=== PATIENT | female | born 1960 | race African-American/Black ===

== ENCOUNTER 2017-09-29 13:53 | Emergency (ER) | payer OTHER ==
[~2017-09-29] VITALS: Ht 152.4 cm; Wt 81.8 kg
[~2017-09-29 13:53] MED LIST: CARV6 PO; CLON.2 PO; FAMO20 PO; FOLI0.8T22 PO; HYDR-3421 PO; LOSA25TA21 PO; NIFE10 PO; SEVEC800 PO
[2017-09-29] MEDS ORDERED: LIDO5CRE TP (14:29)
[2017-09-29] MEDS ORDERED: CINA30 PO (14:29)
[2017-09-29] MEDS ORDERED: HC530C TP (14:29)
[2017-09-29 16:10] VITALS: BP 152/69
[2017-09-29] MEDS ORDERED: BACITRACIN 0.9 GM PACKET OINTMENT TP ONE (17:15)
[2017-09-29] MEDS ORDERED: SODIUM CHLORIDE 0.9% 250 ML IRRIG SOLUTION BOTTLE IRRIG ONE (17:15)
== END 2017-09-29 17:45 | disposition home or self-care (01) ==
LOC: EMS 13:54
DX: S80.212A Abrasion, left knee, initial encounter (principal); I12.0 Hypertensive chronic kidney disease with stage 5 chronic kidney disease or end stage renal disease; E11.22 Type 2 diabetes mellitus with diabetic chronic kidney disease; N18.6 End stage renal disease; Z99.2 Dependence on renal dialysis; Z88.6 Allergy status to analgesic agent; W01.0XXA Fall on same level from slipping, tripping and stumbling without subsequent striking against object, initial encounter; Y93.89 Activity, other specified; Y92.89 Other specified places as the place of occurrence of the external cause; Y99.8 Other external cause status
CPT/HCPCS: 99283; 99284

== ENCOUNTER 2022-07-28 10:27 | Emergency (ER) | payer OTHER ==
[~2022-07-28] VITALS: Ht 167.6 cm; Wt 68.2 kg
[~2022-07-28 10:27] MED LIST changes: +CINA30 PO; -CLON.2 PO; +HYDR30CR44 TP; +LIDO5CRE TP; +LOSA-381 PO; -LOSA25TA21 PO; -NIFE10 PO; +SEVE800T17 PO; -SEVEC800 PO
[2022-07-28] MEDS ORDERED: HYDR30CR39 TP (12:40)
[2022-07-28] MEDS ORDERED: SUCR500T PO (12:40)
[2022-07-28 14:01] VITALS: BP 136/75
== END 2022-07-28 14:03 | disposition home or self-care (01) ==
LOC: EMS 10:30
DX: S90.32XA Contusion of left foot, initial encounter (principal); E11.9 Type 2 diabetes mellitus without complications; I10 Essential (primary) hypertension; H54.8 Legal blindness, as defined in USA; Z99.2 Dependence on renal dialysis; Z98.890 Other specified postprocedural states; X58.XXXA Exposure to other specified factors, initial encounter; Y93.89 Activity, other specified; Y92.89 Other specified places as the place of occurrence of the external cause; Y99.8 Other external cause status
CPT/HCPCS: 99283

== ENCOUNTER 2023-04-11 13:45 | Emergency (ER) | payer OTHER ==
[~2023-04-11] VITALS: Ht 157.5 cm; Wt 68.2 kg
[~2023-04-11 13:45] MED LIST changes: +HYDR30CR39 TP; -HYDR30CR44 TP; +SUCR500T PO
[2023-04-11 18:09] VITALS: BP 130/56; PULSE 84; RESP 18; TEMP 97.9
== END 2023-04-11 18:29 | disposition home or self-care (01) ==
LOC: EMS 13:45
DX: S80.02XA Contusion of left knee, initial encounter (principal); S80.01XA Contusion of right knee, initial encounter; I10 Essential (primary) hypertension; Z98.890 Other specified postprocedural states; Z88.6 Allergy status to analgesic agent; W01.0XXA Fall on same level from slipping, tripping and stumbling without subsequent striking against object, initial encounter; Y93.89 Activity, other specified; Y92.89 Other specified places as the place of occurrence of the external cause; Y99.8 Other external cause status
CPT/HCPCS: 29530; 99284; 73562-TC; 73590-TC; Z7502

== ENCOUNTER 2023-04-25 17:38 | Emergency (ER) | payer OTHER ==
[~2023-04-25] VITALS: Ht 167.6 cm; Wt 67.3 kg
[2023-04-25] MEDS ORDERED: CINA30 PO (18:04)
[2023-04-25] MEDS ORDERED: CHOL200059 PO (18:04)
[2023-04-25 21:30] VITALS: BP 124/74; PULSE 77; RESP 17; TEMP 97.3
== END 2023-04-25 21:51 | disposition home or self-care (01) ==
LOC: EMS 17:54
DX: I12.0 Hypertensive chronic kidney disease with stage 5 chronic kidney disease or end stage renal disease (principal); N18.6 End stage renal disease; M25.462 Effusion, left knee; Z99.2 Dependence on renal dialysis; Z98.890 Other specified postprocedural states; Z88.6 Allergy status to analgesic agent
CPT/HCPCS: 29505; 29530; 99283

== ENCOUNTER 2023-05-18 10:55 | Emergency (ER) | payer OTHER ==
[~2023-05-18] VITALS: Ht 165.1 cm; Wt 74.5 kg
[~2023-05-18 10:55] MED LIST changes: -CARV6 PO; +CHOL200059 PO; -FAMO20 PO; -FOLI0.8T22 PO; -HYDR-3421 PO; -HYDR30CR39 TP; -LIDO5CRE TP; -LOSA-381 PO; -SUCR500T PO
[2023-05-18 13:26] VITALS: BP 125/63; PULSE 87; RESP 18; TEMP 97.8
== END 2023-05-18 13:29 | disposition home or self-care (01) ==
LOC: EMS 11:04
DX: M25.562 Pain in left knee (principal); I10 Essential (primary) hypertension; Z98.890 Other specified postprocedural states; Z88.6 Allergy status to analgesic agent
CPT/HCPCS: 93971; 99284; Z7502

== ENCOUNTER 2023-08-01 12:53 | Emergency (ER) | payer OTHER ==
[~2023-08-01] VITALS: Ht 160 cm; Wt 82.0 kg
[2023-08-01 13:00] VITALS: TEMP 98.1
[2023-08-01] MEDS ORDERED: MORPHINE SULFATE 4 MG/ML SYRINGE IVP ONE (14:30)
[2023-08-01] MEDS ORDERED: ONDANSETRON HCL 4 MG/2 ML VIAL IVP ONE (14:30)
[2023-08-01] MEDS ORDERED: LIDOCAINE 1% 10 ML VIAL SQ ONE (16:30)
[2023-08-01] MEDS ORDERED: ACET-66 PO (17:31)
[2023-08-01 18:00] VITALS: BP 144/82; PULSE 84; RESP 20
[2023-08-02] MEDS ORDERED: PERCT PO (12:04)
== END 2023-08-01 18:32 | disposition home or self-care (01) ==
LOC: EMS 13:17
DX: S83.92XA Sprain of unspecified site of left knee, initial encounter (principal); I12.0 Hypertensive chronic kidney disease with stage 5 chronic kidney disease or end stage renal disease; N18.6 End stage renal disease; Z99.2 Dependence on renal dialysis; Z98.890 Other specified postprocedural states; Z88.6 Allergy status to analgesic agent; W19.XXXA Unspecified fall, initial encounter; Y93.89 Activity, other specified; Y92.098 Other place in other non-institutional residence as the place of occurrence of the external cause; Y99.8 Other external cause status
CPT/HCPCS: 99284; 10160; 96374; 96375; 73562; 73610; 73630; J2270; J2405; J3490

== ENCOUNTER 2023-08-02 09:25 | Emergency (ER) | payer OTHER ==
[~2023-08-02] VITALS: Ht 157.5 cm; Wt 72.7 kg
[~2023-08-02 09:25] MED LIST changes: +ACET-66 PO
[2023-08-02 09:30] VITALS: TEMP 98.6
[2023-08-02] MEDS ORDERED: ACETAMINOPHEN/CODEINE 300-30 MG TABLET PO ONE (10:30)
[2023-08-02 11:21] VITALS: BP 122/84; PULSE 82; RESP 16
[2023-08-02] MEDS ORDERED: PERCT PO (12:04)
== END 2023-08-02 13:01 | disposition home or self-care (01) ==
LOC: EMS 09:27
DX: M25.462 Effusion, left knee (principal); I10 Essential (primary) hypertension; Z98.890 Other specified postprocedural states; Z88.6 Allergy status to analgesic agent
CPT/HCPCS: 99283

== ENCOUNTER 2024-11-13 09:59 | Emergency (ER) | payer OTHER ==
[~2024-11-13] VITALS: Ht 167.6 cm; Wt 72.7 kg
[~2024-11-13 09:59] MED LIST changes: -ACET-66 PO; +AMIO200T68 PO; +APIX2.5T PO; +ATOR20TA PO; -SEVE800T17 PO; +SEVE800T38 PO
[2024-11-13] MEDS ORDERED: FOLI0.8T54 PO (10:43)
[2024-11-13] MEDS ORDERED: HYDR-4527 PO (10:43)
[2024-11-13] MEDS ORDERED: LACT10SO85 PO (10:43)
[2024-11-13] MEDS ORDERED: FAMO20 PO (10:43)
[2024-11-13] MEDS ORDERED: HYDR28CR TP (10:43)
[2024-11-13 11:21] VITALS: TEMP 98.3
[2024-11-13] MEDS ORDERED: CEPH-558 PO (11:22)
[2024-11-13 11:40] VITALS: BP 140/65; PULSE 60; RESP 17; O2SAT 99
== END 2024-11-13 11:41 | disposition home or self-care (01) ==
LOC: EMS 10:03
DX: M79.672 Pain in left foot (principal); I10 Essential (primary) hypertension; I48.91 Unspecified atrial fibrillation; Z79.01 Long term (current) use of anticoagulants; Z79.899 Other long term (current) drug therapy; Z88.6 Allergy status to analgesic agent; Z99.2 Dependence on renal dialysis; Z98.890 Other specified postprocedural states
CPT/HCPCS: 99283

== ENCOUNTER 2025-01-14 21:02 | Emergency (ER) | payer MEDICARE, OTHER ==
[~2025-01-14] VITALS: Ht 162.6 cm; Wt 75.0 kg
[~2025-01-14 21:02] MED LIST changes: +CEPH-558 PO; -CINA30 PO; +CINA30TA32 PO; +FAMO20 PO; +FOLI0.8T54 PO; +HYDR-4527 PO; +HYDR28CR TP; +LACT10SO85 PO
[2025-01-14 21:21] VITALS: BP 156/87; PULSE 78; RESP 18; TEMP 98; O2SAT 100
[2025-01-15] MEDS ORDERED: AMOX-457 PO (13:46)
== END 2025-01-14 22:32 | disposition left against medical advice (07) ==
LOC: EMS 21:02
DX: S40.812A Abrasion of left upper arm, initial encounter (principal); Z53.21 Procedure and treatment not carried out due to patient leaving prior to being seen by health care provider; W55.03XA Scratched by cat, initial encounter; Y93.89 Activity, other specified; Y92.89 Other specified places as the place of occurrence of the external cause; Y99.8 Other external cause status

== ENCOUNTER 2025-01-15 09:58 | Emergency (ER) | payer MEDICARE, OTHER ==
[~2025-01-15] VITALS: Ht 162.6 cm; Wt 75.0 kg
[2025-01-15 10:16] VITALS: TEMP 97.4
[2025-01-15] MEDS: AMOX TR/POT CLAV 875 MG/125 MG TABLET PO ONE (13:35)
[2025-01-15] MEDS: PERTUSS(ACELL),DIPH,TET/PF 0.5 ML SYRINGE [ADULT] IM. ONE (13:37)
[2025-01-15 13:44] VITALS: BP 125/65; PULSE 75; RESP 18; O2SAT 99
[2025-01-15] MEDS ORDERED: AMOX-457 PO (13:46)
== END 2025-01-15 13:52 | disposition home or self-care (01) ==
LOC: EMS 10:06
DX: S60.512A Abrasion of left hand, initial encounter (principal); I10 Essential (primary) hypertension; I48.91 Unspecified atrial fibrillation; Z79.01 Long term (current) use of anticoagulants; Z79.899 Other long term (current) drug therapy; Z88.6 Allergy status to analgesic agent; W55.03XA Scratched by cat, initial encounter; Y93.89 Activity, other specified; Y92.89 Other specified places as the place of occurrence of the external cause; Y99.8 Other external cause status
CPT/HCPCS: 90471; 90715; 99283